=== PATIENT | female | born 1965 | race Caucasian/White ===

== ENCOUNTER → 2024-12-25 17:20 | Outpatient (REF) | payer OTHER, SELFPAY | LOC: MRI 17:20 | PROVIDERS: ATTENDING PHYSICIAN Physician Assistant Medical; FAMILY PHYSICIAN Family Medicine | DX: S76.312A Strain of muscle, fascia and tendon of the posterior muscle group at thigh level, left thigh, initial encounter (principal) | CPT/HCPCS: 73718 ==

== ENCOUNTER 2025-02-05 09:08 | Outpatient (RCR) | payer OTHER, SELFPAY | END 2025-02-05 23:59 | disposition home or self-care (01) | LOC: RPT 09:08 | PROVIDERS: ATTENDING PHYSICIAN Physician Assistant Surgical; FAMILY PHYSICIAN Family Medicine | DX: S76.312D Strain of muscle, fascia and tendon of the posterior muscle group at thigh level, left thigh, subsequent encounter (principal); M79.652 Pain in left thigh; Z73.6 Limitation of activities due to disability; R20.0 Anesthesia of skin; M62.81 Muscle weakness (generalized) | CPT/HCPCS: 97010; 97110; 97162; 97535 ==

== ENCOUNTER 2025-03-08 14:46 | Outpatient (RCR) | payer OTHER, SELFPAY | END 2025-03-08 23:59 | disposition home or self-care (01) | LOC: RPT 14:46 | PROVIDERS: ATTENDING PHYSICIAN Physician Assistant Surgical; FAMILY PHYSICIAN Family Medicine | DX: S76.312D Strain of muscle, fascia and tendon of the posterior muscle group at thigh level, left thigh, subsequent encounter (principal); M79.652 Pain in left thigh; Z73.6 Limitation of activities due to disability; X58.XXXD Exposure to other specified factors, subsequent encounter; R20.0 Anesthesia of skin; M62.81 Muscle weakness (generalized) | CPT/HCPCS: 97110 ==

== ENCOUNTER 2025-03-12 15:10 | Outpatient (RCR) | payer OTHER, SELFPAY | END 2025-03-12 23:59 | disposition home or self-care (01) | LOC: RPT 15:10 | PROVIDERS: ATTENDING PHYSICIAN Physician Assistant Surgical; FAMILY PHYSICIAN Family Medicine | DX: S76.312D Strain of muscle, fascia and tendon of the posterior muscle group at thigh level, left thigh, subsequent encounter (principal); M79.652 Pain in left thigh; Z73.6 Limitation of activities due to disability; R20.0 Anesthesia of skin; M62.81 Muscle weakness (generalized) | CPT/HCPCS: 97110 ==